=== PATIENT | male | born 1985 | race Caucasian/White ===

== ENCOUNTER 2023-11-12 14:38 | Emergency (ER) | payer BC ==
[~2023-11-12] VITALS: Ht 177.8 cm; Wt 97.5 kg
[2023-11-12] MEDS ORDERED: ONDANSETRON HCL/PF 4 MG/2 ML VIAL ONE (15:28)
[2023-11-12] MEDS ORDERED: FAMOTIDINE/PF INJ 20 MG/2 ML VIAL IV ONE (15:28)
[2023-11-12] MEDS: ONDANSETRON HCL/PF 4 MG/2 ML VIAL IVP ONE (15:30)
[2023-11-12 15:32] LABS: BASOPHILS % (AUTO) 0.4 % (0.0-2.0); EOSINOPHILS # (AUTO) 0.3 K/uL (0.0-0.7); EOSINOPHILS % (AUTO) 2.8 % (0.0-6.0); HEMATOCRIT 49 % (39-51); HEMOGLOBIN 16.3 g/dL (13.5-17.5); LYMPHOCYTES # (AUTO) 1.5 K/uL (0.8-4.8); LYMPHOCYTES % (AUTO) 14.9 % (20.0-44.0); MEAN CORPUSCULAR HEMOGLOBIN 30 PG (26.0-33.0); MEAN CORPUSCULAR HGB CONC 33 g/dl (31.0-36.0); MEAN CORPUSCULAR VOLUME 90 fL (80-96); MONOCYTES # (AUTO) 0.7 K/uL (0.1-1.30); MONOCYTES % (AUTO) 6.8 % (2.0-12.0); NEUTROPHILS # (AUTO) 7.4 K/uL (1.8-8.9); NEUTROPHILS % (AUTO) 75.1 % (43.0-81.0); PLATELET COUNT (AUTO) 272 K/uL (150-450); RED BLOOD CELL COUNT(AUTO) 5.45 MIL/uL (4.5-6.0); WHITE BLOOD COUNT (AUTO) 9.8 K/uL (4.3-11.0)
[2023-11-12] MEDS: FAMOTIDINE/PF INJ 20 MG/2 ML VIAL IV ONE (15:32)
[2023-11-12] MEDS: IV NS 0.9% 1,000 ML BAG IV ONE (15:35)
[2023-11-12 15:43] LABS: CREATININE 0.9 mg/dL (0.6-1.3); POTASSIUM 3.6 mmol/L (3.5-5.1)
[2023-11-12 15:58] LABS: ALBUMIN 4.1 g/dL (3.4-5.0); BILIRUBIN,DIRECT 0.1 mg/dL (0.0-0.2); BILIRUBIN,TOTAL 0.7 mg/dL (0.2-1.0); TOTAL PROTEIN, SERUM 7.7 g/dL (6.4-8.2)
[2023-11-12] MEDS ORDERED: FAMO-131 PO (16:38)
[2023-11-12 17:04] VITALS: BP 122/81; TEMP 98.4; O2SAT 98
== END 2023-11-12 17:05 | disposition home or self-care (01) ==
LOC: ER 14:38
DX: R10.84 Generalized abdominal pain (principal); R11.0 Nausea; Z60.2 Problems related to living alone
CPT/HCPCS: 99285; 74176; 96374; 96361; 96375; 85025; 80048; 83690; 80076; 36415; J3490; J2405; J7030

== ENCOUNTER 2024-11-11 12:05 | Emergency (ER) | payer BC ==
[~2024-11-11] VITALS: Ht 162.6 cm; Wt 99.8 kg
[~2024-11-11 12:05] MED LIST: FAMO-131 PO
[2024-11-11 12:16] VITALS: BP 114/55; TEMP 98.5; O2SAT 97
[2024-11-11] MEDS ORDERED: KETOROLAC TROMETHAMINE 15 MG/ML VIAL ONE (12:49)
[2024-11-11] MEDS: KETOROLAC TROMETHAMINE 15 MG/ML VIAL IM ONE (12:58)
[2024-11-11] MEDS ORDERED: NAPR-1164 PO (13:53)
== END 2024-11-11 14:06 | disposition home or self-care (01) ==
LOC: ER 12:09
DX: S76.012A Strain of muscle, fascia and tendon of left hip, initial encounter (principal); X58.XXXA Exposure to other specified factors, initial encounter; Y93.89 Activity, other specified; Y92.89 Other specified places as the place of occurrence of the external cause; Y99.8 Other external cause status
CPT/HCPCS: 99283; 96372; 73503; J1885; 73502